=== PATIENT | female | born 1965 | race Caucasian/White ===

== ENCOUNTER 2017-01-08 20:52 | Inpatient (IN) | payer OTHER ==
[~2017-01-08] VITALS: Ht 167.6 cm; Wt 99.4 kg
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
--- NOTE | ~2017-01-08 | OR ---
PATIENT'S NAME: [facility] AGE: 51 Y [address] ROOM: [place] [address] LOCATION: GPCU ADMIT DATE: 01/08/2017 OR/Procedure Report DISCHARGE DATE: FAMILY PHYSICIAN: PHYSICIAN, UNKNOWN ATTENDING PHYSICIAN: Darin Finnegan SURGEON: Bernardo Calles MD AUTOMOTIVE ELECTRICIAN HELPER: DATE OF PROCEDURE: 01/08/2017 DIAGNOSES: 1. Left occipital condyle fracture. 2. Left cervical 1 lateral mass fracture. 3. Multi-level cervical spondylosis. 4. Left arm nerve root and brachial plexus pain and weakness. PROCEDURE PERFORMED: Application of a halo ring and vest. ANESTHESIA: General. INDICATIONS: Ms. Blackwell required going to the Operating Room for irrigation and debridement of her multiple scalp lacerations. This was done by the General Surgery team. Planned application of a halo ring after the lacerations were closed. Risks benefits, and alternatives have been discussed. The patient understands that in addition to the fractures of the left occipital condyle and left lateral mass of cervical 1, she also has spondylosis, and most likely injuries to the nerve roots are also possible. Brachial plexus stretch with weakness and pain in the left arm. Risks benefits, and alternatives have all been discussed. DESCRIPTION OF PROCEDURE: After the scalp lacerations had been closed, I positioned the patient on the head-sen. This allowed circumferential access to the head. Hair was trimmed behind the ears on both sides. The area over the supraorbital rims and behind the ears were prepared with Betadine. A large halo ring was applied. She was positioned symmetrically with two screws in the front and two in the back, and the front screw was just above the supraorbital rims in the lateral quarter. These were serially tightened up to 9-inch pounds. She was then placed in a vest and positioned in a neutral position. Procedure was done without complication. BERNARDO CALLES MD DPM/modl PATIENT'S NAME: [facility] AGE: 51 Y [address] ROOM: [place] [address] LOCATION: [facility] ADMIT DATE: 01/08/2017 OR/Procedure Report DISCHARGE DATE: FAMILY PHYSICIAN: PHYSICIAN, MERRITT ATTENDING PHYSICIAN: Darin Finnegan /[id number] d: 01/09/17 0209 t: 01/11/17 1221, OPERATIVE SUMMARY
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
[2017-01-08 21:28] LABS: BASOPHIL # 0.1 K/uL (0.0-0.2); BASOPHIL % 0.3 %; EOSINOPHIL # 0.1 K/uL (0.0-0.5); EOSINOPHIL % 0.3 %; HEMATOCRIT 43.7 % (33.0-46.0); HEMOGLOBIN 14.7 g/dL (10.0-15.0); IMMATURE GRANULOCYTE # 0.1 K/uL (0.0-0.3); IMMATURE GRANULOCYTE % 0.7 %; LYMPHOCYTE # 2.1 K/uL (0.8-4.0); LYMPHOCYTE % 10.5 %; MCH 34.2 pg (27.0-34.0); MCHC 33.6 gm/dL (32.0-36.5); MCV 101.6 fl (83.0-98.0); MONOCYTE # 1.6 K/uL (0.0-1.0); MONOCYTE % 8.1 %; MPV 11.6 fl (9.4-12.4); NEUTROPHIL # (ANC) 15.9 K/uL (1.8-7.8); NEUTROPHIL % 80.1 %; NRBC % 0 /100WBC (0-0.00); PLATELET COUNT 176 K/uL (150-450); RDW-CV 12.7 % (11.9-14.6); WBC 19.8 K/uL (4.0-11.0)
[2017-01-08 21:35] LABS: INR - (THERAPEUTIC) 0.97 (0.92-1.07); PROTIME 10.2 SECONDS (9.8-11.4); PTT 22 SECONDS (25-32)
[2017-01-08 21:38] LABS: ALBUMIN 3.3 gm/dL (3.5-5.0); ANION GAP 10.6 (10.0-19.0); BLOOD UREA NITROGEN 6 mg/dL (6-24); CALCIUM 8.3 mg/dL (8.5-10.5); CHLORIDE 111 mMol/L (96-110); CO2 27 mMol/L (22-32); CREATININE 0.8 mg/dL (0.5-1.1); ESTIMATED GFR (MDRD EQUATION) > 60; POTASSIUM 3.6 mMol/L (3.7-5.1); SODIUM 145 mMol/L (135-145)
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
--- NOTE | 2017-01-09 04:25 | NUR ---
Significant Event: Pt disorientated to place, but knows she is in the hospital. Vital signs stable, remains on 4L nc. Cervical spine fracture, Halo collar in place--to have HOB >=45. Scalp laceration bandaged with shadow drainage to back. 5cm lac to Rt cheek, sutured. Scattered abrasions and bruises throughout. Abrasion to RFA with bandaid placed. Very drowsy, but will awake to sound. Bilateral periorbital edema, trace edema throughout. LS coarse, encourage TCDB. Waters patent. PIV x2 18g Rt hand; one NS @ 100, one SL. Activity to be as tolerated. Diet regular as tolerated. Pain associated with head. [place] 1-2 tabs q4. Dilaudid 0.2-1mg q3. Follow up: Continue plan of care. PT/OT to work with pt.
[2017-01-09 06:28] LABS: BASOPHIL % 0.2 %; HEMATOCRIT 39.7 % (33.0-46.0); HEMOGLOBIN 13.3 g/dL (10.0-15.0); IMMATURE GRANULOCYTE # 0.1 K/uL (0.0-0.3); IMMATURE GRANULOCYTE % 0.4 %; LYMPHOCYTE # 0.8 K/uL (0.8-4.0); LYMPHOCYTE % 4.8 %; MCH 34.1 pg (27.0-34.0); MCHC 33.5 gm/dL (32.0-36.5); MCV 101.8 fl (83.0-98.0); MONOCYTE # 0.8 K/uL (0.0-1.0); MONOCYTE % 5.2 %; MPV 11.7 fl (9.4-12.4); NEUTROPHIL # (ANC) 14.3 K/uL (1.8-7.8); NEUTROPHIL % 89.4 %; NRBC % 0 /100WBC (0-0.00); PLATELET COUNT 168 K/uL (150-450); RDW-CV 13.1 % (11.9-14.6)
[2017-01-09 06:30] LABS: WBC 16.1 K/uL (4.0-11.0)
[2017-01-09 06:40] LABS: BLOOD UREA NITROGEN 6 mg/dL (6-24); CHLORIDE 112 mMol/L (96-110); CO2 24 mMol/L (22-32); CREATININE 0.8 mg/dL (0.5-1.1); ESTIMATED GFR (MDRD EQUATION) > 60
[2017-01-09 06:41] LABS: ANION GAP 14.3 (10.0-19.0); POTASSIUM 4.3 mMol/L (3.7-5.1); SODIUM 146 mMol/L (135-145)
[2017-01-09] MEDS ORDERED: PROAIR HFA8.5 GM INH (10:12)
[2017-01-09] MEDS ORDERED: ZESTRIL40 MG PO (10:12)
[2017-01-09] MEDS ORDERED: SYMBICORT 80-10.2 GM INH (10:12)
[2017-01-09] MEDS ORDERED: ASPIRIN LO-DOSE81 MG PO (10:12)
[2017-01-09] MEDS ORDERED: SINUS DECONGEST10 MG PO (10:13)
--- NOTE | 2017-01-09 13:11 | NUR ---
01/09/17 Attempted physical therapy evaluation this morning. Patient states she is not feeling up to therapy today and would like to wait until tomorrow. Plan to complete evaluation tomorrow. Agus Jo, PT 01/09/17
--- NOTE | 2017-01-09 16:31 | NUR ---
Significant Event: Patient A/O x 3. Has required 3 people to move her today, but has refused almost all repositioning and getting out of bed. States "it is too much pressure in her head". MRI done of head/neck and lateral xray dose of neck. VSS on 3L throughout the day. Discontinued telemetry per MD order. Lung sounds clear. Waters discontinued at 1620 per MD order. Head dressing saturated. Neosporin applied to abrasions on face and arms. Pain controlled with [employer] and Dilaudid. Emesis after breakfast this morning and then this afternoon after drinking water. Needs reminders to take things slow as far as PO intake. RFA PIV SL. Follow up: Continue as per plan of care. Increase activity.
--- NOTE | 2017-01-10 04:26 | NUR ---
Significant Event: Pt A&Ox3. Have been running high BP's all night. Lowest since 2300 was 176/96. Called Sivan who has since consulted hospitalist. Lisinopril is on hold and IV hydralazine and labetolol started PRN. Goal is to keep SBP <160. Had 1 large emesis event early this AM. Still has not voided. Dr. Joyce has given order to straight cath; will do prior to shift change. Still have not gotten out of bed and any movement is painful. Gave 1 [place] last night and 1 dose of dilaudid. Gave 1 dose of IV valium. After morning emesis event, pt requests only ice chips. Follow up: Continue to monitor BP's. Chart BP's hourly in [employer] until 7 and if BP's are still elevated, contact hospitalist as pt may need to be on a drip. Continue plan of care. Increase activity.
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
--- NOTE | 2017-01-10 16:11 | NUR ---
Significant Event: Patient A/O x 3. Blurred/double vision at times. Stood at side of bed with 2 A. Reports significant pain/pressure in head/neck when standing, but need to strongly encourage the patient to keep moving and getting out of bed. VSS on 3L O2. O2 drops in mid-80's with activity. Has not required any IV medications for blood pressure control today. Last received PO valium and zofran at 1422. [place] given at 1111. Has tolerated bites of jello and ice chips today. Will continue to attempt to advance diet. New PIV in LFA SL. Dr. Lees consulted today and states he will take her to inpatient rehab when bed comes available and patient is cleared to go. Follow up: Continue as per plan of care. Continue to encourage activity and PO intake.
--- NOTE | 2017-01-11 04:20 | NUR ---
Significant Event: Pt A&Ox3. Vital signs stable, weaned down to 1L. Go to wean to RA during the day. Pt slept all night. Still need standing xray. Only used bedpan once last night. Urine still concentrated. Pt drinking well, but need to increase food intake. PIV in LFA, SL with good blood return. No pain meds or valium given over night. Pt states pain is still around a 6/7, but better than before. Follow up: Increase food intake. Increase activity. Continue plan of care.
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
--- NOTE | 2017-01-11 17:47 | NUR ---
Significant Event: Patient A/O x 3. Up with 1-2A, walker, and gaitbelt. Up in chair throughout most of the day. VSS on RA. Restarted home dose of Lisinopril. Able to stand for x-rays downstairs today. Tolerated more PO intake and up to bedside commode to urinate. No BM since admission. Okay to wash hair, but patient refused today. LFA PIV SL. Last [place] given at approximately 1350. Slept for most of the day unless working with staff. Follow up: Continue as per plan of care. Continue to encourage activity and PO intake.
[2017-01-12 03:53] LABS: ANION GAP 8.9 (10.0-19.0); BLOOD UREA NITROGEN 8 mg/dL (6-24); CALCIUM 8.5 mg/dL (8.5-10.5); CHLORIDE 104 mMol/L (96-110); CO2 33 mMol/L (22-32); CREATININE 0.5 mg/dL (0.5-1.1); ESTIMATED GFR (MDRD EQUATION) > 60; POTASSIUM 3.9 mMol/L (3.7-5.1); SODIUM 142 mMol/L (135-145)
--- NOTE | 2017-01-12 05:01 | NUR ---
Significant Event: Pt A&Ox3. VS stable, remains on 1L. Pain is better control, but still having significant pain associated with the left arm and shoulder. Gave 1 [place] last at 0317. PO food intake better with keeping food down. Advanced diet to regular. Pt ambulates up with 1 assist, gaitbelt, and FWW. Has had good UO on shift. Incisions and pins remain C/D/I with no drainage noted. Generalized edema decreasing, but still present. Does c/o eyes being dry, possibly something for that? Follow up: Try to wean to RA. Continue advancing activity. Continue plan of care.
--- NOTE | 2017-01-12 15:31 | NUR ---
I left a vm with Lesa regarding a bed tomorrow or Tuesday. I did update Spencer SANTIZO as well.
--- NOTE | 2017-01-12 17:29 | NUR ---
Significant Event:SBP-150'S-170'S.OHER VSS.STARTED ON NORVAC.1L. TRIED TO WEAN TO RA, BUT PATIENT DESATS TO MID 80'S WHEN ASLEEP.NORCO GIVEN X2, VALIUMX1 GIVEN FOR PAIN THIS SHIFT. PLEASE CHECK EMAR FOR TIMES.PATIENT IS UP WITH 1 ASSIST+WALKER.WAITING ON BED TO TRANSFER TO [facility].HAIR WASHE BY ADMISSION RN, AND PT. STILL NEEDS MORE WORK, BUT LOOKING MUCH BETTER. Follow up:WILL CONTINUE TO MONITOR PER PLAN OF CARE.
--- NOTE | 2017-01-13 04:55 | NUR ---
Pt a/o x4. SBP 130-160's, all other vss on 1L. not on tele. ambulated in glass x1. norco 2 tabs x2. iv sl. slept in chair. needs ortho to come adjust her halo brace. Plan: would like her hair washed if at all possible-if not she wants it cut off
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
--- NOTE | 2017-01-13 15:13 | NUR ---
I got a call from Lesa and they can take tomorrow at 0900. I did call Spencer SANTIZO and also Dr Fuentes. I spoke with pt and she agree's to the plan. I did also update Thea with [facility] as well. WIll continue to follow.
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
--- NOTE | 2017-01-14 04:29 | NUR ---
Significant events: Pt A/Ox3. VSS. [place] x2 for pain. Care done to pin sites. Up 1PA, ambulates in glass. No tele or IV per MD order. Slept in bed this shift. Pleasant with cares. To transfer to [facility] today.
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
== END 2017-01-14 14:00 | DRG 86 ==
LOC: GACC 20:52 → GPCU 22:15
PROVIDERS: Emergency Medicine; Family Medicine; ADMIT Surgery
PROC: 0HQ1XZZ Repair Face Skin, External Approach (ICD-10-PCS; principal; 2017-01-08)
PROC: 2W60X0Z Traction of Head using Traction Apparatus (ICD-10-PCS; principal; 2017-01-08)
PROC: 0HQ0XZZ Repair Scalp Skin, External Approach (ICD-10-PCS; principal; 2017-01-08)
PROC: 3E0F7GC Introduction of Other Therapeutic Substance into Respiratory Tract, Via Natural or Artificial Opening (ICD-10-PCS; principal; 2017-01-08)
DX: S02.113A Unspecified occipital condyle fracture, initial encounter for closed fracture (principal); S22.039A Unspecified fracture of third thoracic vertebra, initial encounter for closed fracture; S12.000A Unspecified displaced fracture of first cervical vertebra, initial encounter for closed fracture; S22.029A Unspecified fracture of second thoracic vertebra, initial encounter for closed fracture; J45.909 Unspecified asthma, uncomplicated; S01.01XA Laceration without foreign body of scalp, initial encounter; F17.210 Nicotine dependence, cigarettes, uncomplicated; M47.812 Spondylosis without myelopathy or radiculopathy, cervical region; S12.190A Other displaced fracture of second cervical vertebra, initial encounter for closed fracture; I16.0 Hypertensive urgency; M47.9 Spondylosis, unspecified; S01.411A Laceration without foreign body of right cheek and temporomandibular area, initial encounter; V89.2XXA Person injured in unspecified motor-vehicle accident, traffic, initial encounter; Z62.810 Personal history of physical and sexual abuse in childhood; Z87.39 Personal history of other diseases of the musculoskeletal system and connective tissue; R06.89 Other abnormalities of breathing
CPT/HCPCS: G0390; G0480; J0131; J0360; J0690; J1170; J1650; J2405; J3360; J7030; J7050; Q9967

== ENCOUNTER 2017-01-14 14:21 | Inpatient (IN) | payer OTHER ==
[~2017-01-14] VITALS: Ht 167.6 cm; Wt 101.5 kg
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
[~2017-01-14 14:21] MED LIST: ASPIRIN LO-DOSE81 MG PO; PROAIR HFA8.5 GM INH; SINUS DECONGEST10 MG PO; SYMBICORT 80-10.2 GM INH; ZESTRIL40 MG PO
[2017-01-15 05:41] LABS: BASOPHIL % 0.4 %; EOSINOPHIL # 0.1 K/uL (0.0-0.5); EOSINOPHIL % 1.9 %; HEMATOCRIT 34.4 % (33.0-46.0); HEMOGLOBIN 11.2 g/dL (10.0-15.0); IMMATURE GRANULOCYTE # 0.1 K/uL (0.0-0.3); IMMATURE GRANULOCYTE % 0.8 %; LYMPHOCYTE # 1.4 K/uL (0.8-4.0); LYMPHOCYTE % 19.4 %; MCH 33.7 pg (27.0-34.0); MCHC 32.6 gm/dL (32.0-36.5); MCV 103.6 fl (83.0-98.0); MONOCYTE # 0.8 K/uL (0.0-1.0); MONOCYTE % 10.4 %; MPV 10.7 fl (9.4-12.4); NEUTROPHIL % 67.1 %; NRBC % 0 /100WBC (0-0.00); RBC 3.32 M/uL (3.50-5.50); RDW-CV 13.2 % (11.9-14.6); WBC 7.4 K/uL (4.0-11.0)
[2017-01-15 05:42] LABS: PLATELET COUNT 252 K/uL (150-450)
[2017-01-15 06:01] LABS: ALK PHOS 76 IU/L (33-138); ALT 27 IU/L (12-78); ANION GAP 10.1 (10.0-19.0); AST 26 IU/L (10-40); BLOOD UREA NITROGEN 8 mg/dL (6-24); CALCIUM 8.9 mg/dL (8.5-10.5); CHLORIDE 105 mMol/L (96-110); CO2 32 mMol/L (22-32); CREATININE 0.6 mg/dL (0.5-1.1); ESTIMATED GFR (MDRD EQUATION) > 60; POTASSIUM 4.1 mMol/L (3.7-5.1); SODIUM 143 mMol/L (135-145); TOTAL BILIRUBIN 0.5 mg/dL (0.0-1.5); TOTAL PROTEIN 6.5 g/dL (6.0-8.4)
[2017-01-15 20:56] LABS: BILIRUBIN URINE NEGATIVE (NEGATIVE); BLOOD URINE NEGATIVE /UL (NEGATIVE); GLUCOSE URINE NEGATIVE (NEGATIVE); KETONE URINE NEGATIVE (NEGATIVE); LEUKOCYTES URINE NEGATIVE /UL (NEGATIVE); NITRITE URINE NEGATIVE (NEGATIVE); PROTEIN URINE NEGATIVE (NEGATIVE); SPEC GRAVITY URINE 1.005 (1.003-1.035); UROBILINOGEN URINE NORMAL (NORMAL)
[2017-01-15 21:04] LABS: COLOR URINE YELLOW (YELLOW); TURBIDITY URINE CLEAR (CLEAR)
[2017-01-21] MEDS ORDERED: HYDROGEN PEROXID1 ML (16:20)
[2017-01-21] MEDS ORDERED: LOPRESSOR25 MG PO (16:21)
[2017-01-21] MEDS ORDERED: NICODERM / HABIT7 MG TRANS (16:26)
[2017-01-21] MEDS ORDERED: NORVASC10 MG PO (16:26)
[2017-01-21] MEDS ORDERED: NEURONTIN400 MG PO (16:27)
[2017-01-21] MEDS ORDERED: MIRALAX17 GM PO (16:28)
[2017-01-21] MEDS ORDERED: SENOKOT8.6 MG PO (16:31)
[2017-01-21] MEDS ORDERED: DUONEB INH (16:32)
[2017-01-21] MEDS ORDERED: DULERA 100 MCG/51 EA INH (16:33)
[2017-01-21] MEDS ORDERED: NORCO 10-325 T1 EACH PO (16:36)
[2017-01-21] MEDS ORDERED: MILK OF MA400 MG/5 M PO (16:37)
[2017-01-21] MEDS ORDERED: VALIUM5 MG PO (16:37)
== END 2017-01-22 12:11 | disposition disaster alternative care site (69) | DRG 561 ==
LOC: GIRP 14:21 → GMSU 14:21 → GIRP 01-18 18:43
PROVIDERS: ADMIT Physical Medicine & Rehabilitation
PROC: F07M6ZZ Therapeutic Exercise Treatment of Musculoskeletal System - Whole Body (ICD-10-PCS; principal; 2017-01-14)
PROC: F08Z4ZZ Home Management Treatment (ICD-10-PCS; principal; 2017-01-14)
PROC: F07Z9ZZ Gait Training/Functional Ambulation Treatment (ICD-10-PCS; principal; 2017-01-14)
PROC: F06Z6ZZ Communicative/Cognitive Integration Skills Treatment (ICD-10-PCS; principal; 2017-01-14)
DX: S12.200D Unspecified displaced fracture of third cervical vertebra, subsequent encounter for fracture with routine healing (principal); R26.9 Unspecified abnormalities of gait and mobility; I10 Essential (primary) hypertension; S12.040D Displaced lateral mass fracture of first cervical vertebra, subsequent encounter for fracture with routine healing; S02.113D Unspecified occipital condyle fracture, subsequent encounter for fracture with routine healing; S22.029D Unspecified fracture of second thoracic vertebra, subsequent encounter for fracture with routine healing; S22.039D Unspecified fracture of third thoracic vertebra, subsequent encounter for fracture with routine healing; S09.8XXD Other specified injuries of head, subsequent encounter; V89.2XXD Person injured in unspecified motor-vehicle accident, traffic, subsequent encounter; M25.512 Pain in left shoulder; M25.511 Pain in right shoulder; J44.9 Chronic obstructive pulmonary disease, unspecified; Z72.0 Tobacco use; Z79.82 Long term (current) use of aspirin; K59.00 Constipation, unspecified
CPT/HCPCS: G0009; J1650

== ENCOUNTER → 2017-02-28 | Outpatient (CLI) | payer SELFPAY ==
[~2017-02-28] MED LIST changes: +DULERA 100 MCG/51 EA INH; +DUONEB INH; +HYDROGEN PEROXID1 ML; +LOPRESSOR25 MG PO; +MILK OF MA400 MG/5 M PO; +MIRALAX17 GM PO; +NEURONTIN400 MG PO; +NICODERM / HABIT7 MG TRANS; +NORCO 10-325 T1 EACH PO; +NORVASC10 MG PO; +SENOKOT8.6 MG PO; +VALIUM5 MG PO
== END | disposition disaster alternative care site (69) ==
LOC: GRAD 15:20
DX: S02.113D Unspecified occipital condyle fracture, subsequent encounter for fracture with routine healing (principal); M47.814 Spondylosis without myelopathy or radiculopathy, thoracic region; X58.XXXD Exposure to other specified factors, subsequent encounter

== ENCOUNTER → 2017-04-04 | Outpatient (CLI) | payer SELFPAY | END | disposition disaster alternative care site (69) | LOC: GRAD 19:12 | DX: S02.113D Unspecified occipital condyle fracture, subsequent encounter for fracture with routine healing (principal); S12.000D Unspecified displaced fracture of first cervical vertebra, subsequent encounter for fracture with routine healing; S12.200D Unspecified displaced fracture of third cervical vertebra, subsequent encounter for fracture with routine healing; M47.893 Other spondylosis, cervicothoracic region; X58.XXXD Exposure to other specified factors, subsequent encounter ==

== ENCOUNTER → 2017-05-09 | Outpatient (CLI) | payer SELFPAY | END | disposition disaster alternative care site (69) | LOC: GRAD 15:42 | DX: Z47.89 Encounter for other orthopedic aftercare (principal) ==